=== PATIENT | female | born 1955 | race Caucasian/White ===

== ENCOUNTER → 2018-10-03 | Outpatient (CLI) | payer BC ==
[~2018-10-03] MED LIST: ACE3 PO; ACET-1966 PO; ASPI-663 PO; BUPR-472 PO; DAR100 PO; ESC10 PO; ESCI20TA38 PO; IBUP-56 PO; KET10 PO; MULT-820 PO; MULT-912 PO; PER PO; PHEN-460 PO
--- NOTE | 2018-10-03 16:53 | RADIOLOGY IMAGING REPORT ---
FACILITY: [facility] [place] PATIENT NAME: Anum Hoyos : 1955 MR: [id number] V: [id number] EXAM DATE: ORDERING PHYSICIAN: DAV DUMAS TECHNOLOGIST: Location: [facility] [place] Patient: Anum Hoyos : 1955 Visit/Account:[id number] Date of Sevice: 10/03/2018 DEXA Scan 10/03/2018 4:20 PM HISTORY: Screening. Postmenopausal. Breast cancer history. Comparison: DEXA scan from 06/06/2000. LUMBAR SPINE: The bone mineral density (BMD) measured from L1-L4 correlates with a Z-score of 0.7 and a T-score of -0.2 which is Normal as defined by the World Health Organization. The corresponding risk of fracture in the lumbar spine is Not increased compared with a young adult reference population. This value h as decreased by 10.9 % since the prior study. More than 5% change is considered significant. HIP: Bone mineral density (BMD) measured in the Left total hip region correlates with a Z-score 0.1 and a T-score of -0.6 which is within normal range as defined by the World Health Organization. [facility] fracture in the hip is increased less than 2 times compared with a young adult [facility] population. This value has decreased by 10.5 % since the prior study. More than 5% change is con sidered significant. Bone mineral density (BMD) measured in the Femoral Neck region measures 0.862 g/cm2. T-score is -1. 3. IMPRESSION: 1. Lumbar spine: Normal. There has been a significant interval decrease in the bone mineral density since the previous exam. 2. Left Total Hip: Within normal range. There has been a significant interval decrease in the bone mineral density since the previous exam. 3. Femoral Neck: Bone Mineral Density is 0.862 g/cm2. Mild osteopenia. The next DEXA scan of this patient should include the following sites: L1-L4 and the left hip. FRAX? WHO Fracture Risk Assessment Tool link: <http://www.shef.ac.uk/FRAX/tool.jsp?[email or web address]> PLEASE NOTE: 1) The World Health Organization defines low BMD as follows: T-score Normal > -1 Osteopenia < -1 and > -2.5 Osteoporosis < -2.5 without fractures Established osteoporosis < -2.5 with fractures 2) In general, you may wish to consider: Diagnosis Treatment Follow-up DEXA Normal BMD Prevention 2-3 years Osteopenia Prevention/therapy 1-2 years Osteoporosis Therapy Yearly 3) Fracture risk estimated from the T-score is more accurate for vertebral fractures (often spontane ous) than for hip fractures. Report Dictated By: Danny Delatorre MD at 10/03/2018 4:47 PM Report E-Signed By: Danny Delatorre MD at 10/03/2018 4:49 PM RICHARDN:ASHIA
== END ==
LOC: RAD 00:26
PROVIDERS: ATTEND Nurse Practitioner Family
DX: Z13.820 Encounter for screening for osteoporosis (principal); Z78.0 Asymptomatic menopausal state
CPT/HCPCS: 77080